=== PATIENT | male | born 1970 | race Caucasian/White ===

== ENCOUNTER 2022-10-15 02:35 | Inpatient (IN) | payer BC ==
[2022-10-15] VITALS (7 sets, daily range): BP systolic 98–145; BP diastolic 55–85
[~2022-10-15] VITALS: Ht 190.5 cm; Wt 102.0 kg
[~2022-10-15 02:35] MED LIST: DAYPRO600 M1 PO; MEDROL DOSEPAK4 MG PO; ROBAXIN750 MG PO; VICODIN 500 MG-1 TAB PO; VOLTAREN75 MG PO
[2022-10-15 03:01] LABS: BASO # 0.1 10*3/uL (0.0-0.1); BASO % 1.1 % (0.0-1.0); EOS # 0.5 10*3/uL (0.0-0.4); EOS % 4.1 % (1.0-4.0); HEMATOCRIT 47.8 % (42.0-52.0); LYMPH # 2.9 10*3/uL (1.3-4.4); LYMPH % 25.4 % (27.0-41.0); MEAN CORPUSCULAR HGB 30.3 pg (27.0-31.0); MEAN CORPUSCULAR HGB CONC 33.7 g/dl (33.0-37.0); MEAN PLATELET VOLUME 9.4 fl (9.6-12.3); MONO # 0.8 10*3/uL (0.1-1.0); MONO % 7.3 % (3.0-9.0); NEUT % 61.8 % (47.0-73.0); PLATELET COUNT AUTOMATED 317 10*3/uL (130-400); RED BLOOD COUNT 5.31 10*6/uL (4.50-5.90); RED CELL DISTRI WIDTH 13.3 % (0-14.5); WHITE BLOOD COUNT 11.3 10*3/uL (4.8-10.8)
[2022-10-15 03:23] LABS: ALKALINE PHOSPHATASE 77 U/L (46-116); BUN 13 mg/dl (9-23); CHLORIDE 107 mmol/L (98-107); LIPASE 33 U/L (12-53); POTASSIUM 4.3 mmol/L (3.4-5.1); SGPT/ALT 24 U/L (10-49); TOTAL PROTEIN 6.2 gm/dL (6.0-8.0)
[2022-10-16] VITALS (9 sets, daily range): BP systolic 102–139; BP diastolic 56–81
[2022-10-16 07:21] LABS: BASO # 0.1 10*3/uL (0.0-0.1); BASO % 1.5 % (0.0-1.0); EOS # 0.4 10*3/uL (0.0-0.4); EOS % 4.6 % (1.0-4.0); HEMATOCRIT 47.6 % (42.0-52.0); LYMPH # 2.7 10*3/uL (1.3-4.4); LYMPH % 34.3 % (27.0-41.0); MEAN CELL VOLUME 92.1 fl (80.0-94.0); MEAN CORPUSCULAR HGB 30.6 pg (27.0-31.0); MEAN CORPUSCULAR HGB CONC 33.2 g/dl (33.0-37.0); MEAN PLATELET VOLUME 9.5 fl (9.6-12.3); MONO # 0.5 10*3/uL (0.1-1.0); MONO % 6.7 % (3.0-9.0); NEUT # 4.2 10*3/uL (2.3-7.9); NEUT % 52.6 % (47.0-73.0); PLATELET COUNT AUTOMATED 264 10*3/uL (130-400); RED BLOOD COUNT 5.17 10*6/uL (4.50-5.90); RED CELL DISTRI WIDTH 13.5 % (0-14.5)
[2022-10-16 07:48] LABS: VITAMIN D, 25-HYDROXY 48.1 ng/mL (30-100)
[2022-10-16 07:49] LABS: ALKALINE PHOSPHATASE 68 U/L (46-116); BUN 10 mg/dl (9-23); CHLORIDE 108 mmol/L (98-107); CHOLESTEROL 255 mg/dL (<200); FREE T4 1.17 ng/dl (0.89-1.76); LDL CHOLESTEROL 179 mg/dL (9-159); SGPT/ALT 21 U/L (10-49); TOTAL PROTEIN 5.9 gm/dL (6.0-8.0); TRIGLYCERIDES 150 mg/dl (<150)
[2022-10-17 04:00] VITALS: BP 113/64
[2022-10-17 06:57] LABS: BASO % 0.3 % (0.0-1.0); EOS % 0.3 % (1.0-4.0); HEMATOCRIT 46.5 % (42.0-52.0); LYMPH # 2.1 10*3/uL (1.3-4.4); LYMPH % 15.3 % (27.0-41.0); MEAN CELL VOLUME 91.9 fl (80.0-94.0); MEAN CORPUSCULAR HGB 30.4 pg (27.0-31.0); MEAN CORPUSCULAR HGB CONC 33.1 g/dl (33.0-37.0); MEAN PLATELET VOLUME 9.9 fl (9.6-12.3); MONO # 1.1 10*3/uL (0.1-1.0); MONO % 7.9 % (3.0-9.0); NEUT # 10.5 10*3/uL (2.3-7.9); PLATELET COUNT AUTOMATED 294 10*3/uL (130-400); RED BLOOD COUNT 5.06 10*6/uL (4.50-5.90); RED CELL DISTRI WIDTH 13.4 % (0-14.5); WHITE BLOOD COUNT 13.8 10*3/uL (4.8-10.8)
[2022-10-17 07:21] LABS: BUN 13 mg/dl (9-23); CHLORIDE 104 mmol/L (98-107); POTASSIUM 4.2 mmol/L (3.4-5.1)
[2022-10-17 08:00] VITALS: BP 112/62
[2022-10-17] MEDS ORDERED: HYDROCODONE-AC1 EAC1 PO (11:59)
[2022-10-17] MEDS ORDERED: COLACE100 MG PO (11:59)
[2022-10-17 12:00] VITALS: BP 138/84
== END 2022-10-17 14:30 | disposition home or self-care (01) | DRG 419 ==
LOC: ED 02:35 → 5E 05:08 → EDHOLD 05:08 → 5E 13:58
PROVIDERS: Internal Medicine; ADMIT Family Medicine; ATTEND Family Medicine
PROC: 0FT44ZZ Resection of Gallbladder, Percutaneous Endoscopic Approach (ICD-10-PCS; principal; 2022-10-16)
DX: K80.00 Calculus of gallbladder with acute cholecystitis without obstruction (principal); F17.210 Nicotine dependence, cigarettes, uncomplicated; M51.36 Other intervertebral disc degeneration, lumbar region; M25.78 Osteophyte, vertebrae; M43.06 Spondylolysis, lumbar region; N52.9 Male erectile dysfunction, unspecified; R73.9 Hyperglycemia, unspecified; Z83.3 Family history of diabetes mellitus; Z71.6 Tobacco abuse counseling

== ENCOUNTER 2023-07-08 07:07 | Emergency (ER) | payer BC ==
[~2023-07-08] VITALS: Ht 190.5 cm; Wt 113.4 kg
[~2023-07-08 07:07] MED LIST changes: +COLACE100 MG PO; +HYDROCODONE-AC1 EAC1 PO
[2023-07-08] MEDS ORDERED: ACETAMINOPHEN 325 MG TAB PO ONE (07:25)
[2023-07-08] MEDS ORDERED: MELOXICAM15 MG PO (08:55)
== END 2023-07-08 09:30 | disposition home or self-care (01) ==
LOC: ED 07:07
DX: M25.561 Pain in right knee (principal); M19.90 Unspecified osteoarthritis, unspecified site; F17.200 Nicotine dependence, unspecified, uncomplicated; Z90.49 Acquired absence of other specified parts of digestive tract; Z98.890 Other specified postprocedural states; Z87.442 Personal history of urinary calculi

== ENCOUNTER → 2023-07-15 | Outpatient (CLI) | payer BC ==
[~2023-07-15] MED LIST changes: +MELOXICAM15 MG PO
== END | disposition home or self-care (01) ==
LOC: MRI 01:31
PROVIDERS: ATTEND Orthopaedic Surgery
DX: S83.411A Sprain of medial collateral ligament of right knee, initial encounter (principal); S83.421A Sprain of lateral collateral ligament of right knee, initial encounter; S76.101A Unspecified injury of right quadriceps muscle, fascia and tendon, initial encounter; M79.89 Other specified soft tissue disorders; M25.461 Effusion, right knee; X58.XXXA Exposure to other specified factors, initial encounter; Y93.89 Activity, other specified; Y92.89 Other specified places as the place of occurrence of the external cause; Y99.8 Other external cause status

== ENCOUNTER → 2024-09-25 | Outpatient (CLI) | payer BC | END | disposition home or self-care (01) | LOC: ORTHO 01:28 | PROVIDERS: ATTEND Orthopaedic Surgery | DX: M25.511 Pain in right shoulder (principal) ==